=== PATIENT | female | born 1955 | race American Indian/Alaskan Native ===

== ENCOUNTER 2017-09-05 11:28 | Outpatient (CLI) | payer MEDICARE ==
--- NOTE | 2017-09-06 08:58 | Mammography Report ---
BILATERAL DIGITAL SCREENING MAMMOGRAM with CAD: 09/05/17 11:28:00 CLINICAL: Routine screening.Breast cancer survivor status post right mastectomy. The right breast is imaged because there is considerable soft tissue of the right chest wall. COMPARISON:07/30/16 FINDINGS: The breasts are almost entirely fatty.A few scattered benign left calcifications. No mass, architectural distortion or suspicious calcifications. IMPRESSION: No mammographic evidence of malignancy. BI-RADS CATEGORY: 2 -- Benign RECOMMENDATION: Routine mammographic screening in one year. COMMENT: Patient follow-up letters are generated by our [employer] application.
== END 2017-09-05 11:29 | disposition home or self-care (01) ==
LOC: SPVWC 11:28
PROVIDERS: ATTEND Internal Medicine
DX: Z12.31 Encounter for screening mammogram for malignant neoplasm of breast (principal); Z90.11 Acquired absence of right breast and nipple
CPT/HCPCS: 77067

== ENCOUNTER 2019-07-29 12:58 | Outpatient (CLI) | payer MEDICARE ==
--- NOTE | 2019-07-29 15:05 | Mammography Report ---
DIGITAL DIAGNOSTIC MAMMOGRAM WITH CAD, 07/29/2019 INDICATION: Breast cancer survivor status post right mastectomy. SCREENING MAMMOGRAM TECHNIQUE: Digital left mammographic imaging was performed. This examination was interpreted with the benefit of Computer-aided Detection analysis. COMPARISON: 09/05/2017 FINDINGS: Breast Density: The breast is almost entirely fatty. There is no evidence of dominant mass, suspicious calcifications or architectural distortion in the l eft breast. Scattered calcifications with benign morphology. IMPRESSION: No mammographic evidence of malignancy. Follow up recommendation: Routine yearly BI-RADS Category 2: Benign. A "normal" or negative report should not discourage follow up or biopsy of a clinically significant f inding. A written summary of these findings will be mailed to the patient. The patient will be entered into a mammography reporting system which will generate a reminder letter for the patient's next appointmen t at the appropriate interval. According to the [employer], yearly mammograms are recommended starting at age 40 and continuing as long as a woman is in good health. Breast MRI is recommended for women with an brian roximately 20-25% or greater lifetime risk of breast cancer, including women with a strong family his tory of breast or ovarian cancer and women who have been treated for Hodgkin's disease. Signer Name: Steven Graham MD Signed: 07/29/2019 3:00 PM Workstation Name: [id number]
--- NOTE | 2019-07-30 09:59 | Mammography Report ---
BONE DEXA CLINICAL: Postmenopausal. COMPARISON: 07/29/2015 TECHNIQUE: 2 site bone DEXA performed on an Hologic scanner. FINDINGS: The average BMD of the lumbar spine L1-L4 is 1.211g/cm squared with a T score of +0.6 and a Z score o f +2.6. This compares to 1.215g/cm squared on the last exam and represents a -0.3 % change from the p revious baseline. The average BMD of the left hip is 0.880 g/cm squared with a T score of -1.0and a Z score of 0. This compares to 0.947 g/cm squared on the last exam and represents a -7.0 % change from the previous base line. IMPRESSION: 1. WHO classification: Normal with average fracture risk based on spine measurements. 2. WHO classification Osteopenia with increased fracture risk based on left hip measurements. 3. A moderate decline in hip BMD but little change in spine BMD compared to the last exam. RECOMMENDATION: Clinical correlation and routine screening. Definitions: BMD equal bone mineral density T score = BMD related to peak bone mass of young adult ([place] expressed an standard deviation) Z score = age-matched BMD expressed in SD World health organization (WHO) diagnostic criteria Normal T score greater than equal to 1 standard deviation Osteopenia T score between -1 and -2.4 standard deviation Osteoporosis T score -2.5 standard deviation or below. Note: BMD is not the only risk factor for fracture; also consider factors such as the patient's age, risk of falling, previous osteoporotic fracture, family history of osteoporotic fractures, current sm oker and low body weight. Z scores are not calculated if greater than 80 years of age. Signer Name: Steven Graham MD Signed: 07/30/2019 9:54 AM Workstation Name: [id number]
== END 2019-07-29 12:59 | disposition home or self-care (01) ==
LOC: SPVWC 12:58
PROVIDERS: ATTEND Internal Medicine
DX: R92.8 Other abnormal and inconclusive findings on diagnostic imaging of breast (principal); Z78.0 Asymptomatic menopausal state
CPT/HCPCS: 77080

== ENCOUNTER 2020-09-12 09:40 | Outpatient (CLI) | payer MEDICARE ==
--- NOTE | 2020-09-12 12:08 | XRay Report ---
CHEST 2 VIEWS INDICATION / CLINICAL INFORMATION: COUGH R05. COMPARISON: None available. FINDINGS: SUPPORT DEVICES: None. HEART / MEDIASTINUM: No significant abnormality. LUNGS / PLEURA: No significant pulmonary or pleural abnormality. No pneumothorax. ADDITIONAL FINDINGS: No significant additional findings. IMPRESSION: 1. No acute findings. Signer Name: Grey Chambers MD Signed: 09/12/2020 12:04 PM Workstation Name: [id number]
--- NOTE | 2020-09-12 13:56 | XRay Report ---
LEFT HIP 2 VIEWS INDICATION: CONTUSION OF LEFT HIP S70.0. COMPARISON: None. IMPRESSION: Borderline to mild osteopenia is suspected. No acute osseous abnormality or bone lesion is appreciated. No significant degenerative changes. Large calcifications in the pelvis likely repre sent uterine fibroid disease. LEFT FEMUR 2 VIEWS INDICATION: Contusion of left thigh. COMPARISON: None. IMPRESSION: Borderline to mild osteopenia is suspected. No acute osseous or soft tissue abnormality. Signer Name: Bran Fu Jr, MD Signed: 09/12/2020 1:52 PM Workstation Name: [id number]
--- NOTE | 2020-09-12 14:38 | Mammography Report ---
DIGITAL SCREENING MAMMOGRAM WITH CAD, 09/12/2020 CLINICAL INFORMATION / INDICATION: Routine screening mammography. History of right breast cancer 2001 . TECHNIQUE: Digital bilateral 2D mammography was obtained in the craniocaudal and mediolateral obliqu e projections. This examination was interpreted with the benefit of Computer-Aided Detection analysis . COMPARISON: 07/29/2019, 09/05/2017 FINDINGS: Breast Density: The breasts are almost entirely fatty. No dominant mass, suspicious calcifications, or architectural distortion in either breast. Benign sca ttered calcifications, left breast. Partial mastectomy, right breast. Overall, no interval change. IMPRESSION: No mammographic evidence of malignancy. Follow up recommendation: Routine yearly BI-RADS Category 2: Benign. A "normal" or negative report should not discourage follow up or biopsy of a clinically significant f inding. A written summary of these findings will be mailed to the patient. The patient will be entered into a mammography reporting system which will generate a reminder letter for the patient's next appointmen t at the appropriate interval. The [employer] recommends yearly mammograms starting at age 40 and continuing as l misael as a woman is in good health. Breast MRI is recommended for women with an approximate 20-25% or greater lifetime risk of breast cancer, including women with a strong family history of breast or ova jose alejandro cancer or who have been treated for Hodgkin's disease. Signer Name: Rosa Isela Camara MD Signed: 09/12/2020 2:33 PM Workstation Name: [id number]
== END 2020-09-12 09:41 | disposition home or self-care (01) ==
LOC: SPVWC 09:40
PROVIDERS: ATTEND Internal Medicine
DX: Z12.31 Encounter for screening mammogram for malignant neoplasm of breast (principal); S70.02XA Contusion of left hip, initial encounter; R05 Cough; X58.XXXA Exposure to other specified factors, initial encounter; Y93.89 Activity, other specified; Y92.89 Other specified places as the place of occurrence of the external cause; Y99.8 Other external cause status
CPT/HCPCS: 71046; 77067

== ENCOUNTER 2022-01-04 13:48 | Outpatient (CLI) | payer MEDICARE ==
--- NOTE | 2022-01-05 18:22 | Mammography Report ---
DIGITAL SCREENING MAMMOGRAM WITH CAD, 01/04/2022 CLINICAL INFORMATION / INDICATION: Routine screening mammography. Z12.31 TECHNIQUE: Digital left 2D mammography was obtained in the craniocaudal and mediolateral oblique pro jections. This examination was interpreted with the benefit of Computer-Aided Detection analysis. COMPARISON: 09/12/2020, 07/29/2019 FINDINGS: Breast Density: The breasts are almost entirely fatty. No dominant mass, suspicious calcifications, or architectural distortion in the left breast. No interval change. IMPRESSION: No mammographic evidence of malignancy. Follow up recommendation: Routine yearly screening mammogram. - The ACR recommends yearly screening MRI in patients with a personal history of breast cancer who quintana ve dense fibroglandular tissue as well in patients who were diagnosed with breast cancer under the ag e of 50. BI-RADS Category 1: NEGATIVE A "normal" or negative report should not discourage follow up or biopsy of a clinically significant f inding. A written summary of these findings will be mailed to the patient. The patient will be entered into a mammography reporting system which will generate a reminder letter for the patient's next appointmen t at the appropriate interval. The [employer] recommends yearly mammograms starting at age 40 and continuing as l misael as a woman is in good health. Breast MRI is recommended for women with an approximate 20-25% or greater lifetime risk of breast cancer, including women with a strong family history of breast or ova jose alejandro cancer or who have been treated for Hodgkin's disease. Signer Name: Rosa Isela Camara MD Signed: 01/05/2022 6:18 PM Workstation Name: [email or web address]
== END 2022-01-04 13:49 | disposition home or self-care (01) ==
LOC: MAMMO 13:48
PROVIDERS: ATTEND Internal Medicine
DX: Z12.31 Encounter for screening mammogram for malignant neoplasm of breast (principal); C50.911 Malignant neoplasm of unspecified site of right female breast

== ENCOUNTER 2022-01-25 08:53 | Outpatient (CLI) | payer MEDICARE ==
--- NOTE | 2022-01-25 16:05 | Mammography Report ---
DIGITAL SCREENING MAMMOGRAM WITH CAD, 01/25/2022 CLINICAL INFORMATION / INDICATION: Routine screening mammography. SCREENING TECHNIQUE: Digital left 2D mammography was obtained in the craniocaudal and mediolateral oblique pro jections. This examination was interpreted with the benefit of Computer-Aided Detection analysis. COMPARISON: 01/04/2022 FINDINGS: Breast Density: There are scattered areas of fibroglandular density. No dominant mass, suspicious calcifications, or architectural distortion in the left breast. IMPRESSION: No mammographic evidence of malignancy. Follow up recommendation: Routine yearly screening mammogram. BI-RADS Category 1: NEGATIVE A "normal" or negative report should not discourage follow up or biopsy of a clinically significant f inding. A written summary of these findings will be mailed to the patient. The patient will be entered into a mammography reporting system which will generate a reminder letter for the patient's next appointmen t at the appropriate interval. The [employer] recommends yearly mammograms starting at age 40 and continuing as l misael as a woman is in good health. Breast MRI is recommended for women with an approximate 20-25% or greater lifetime risk of breast cancer, including women with a strong family history of breast or ova jose alejandro cancer or who have been treated for Hodgkin's disease. Signer Name: Osiel Jimenez MD Signed: 01/25/2022 4:00 PM Workstation Name: [id number]
== END 2022-01-25 08:54 | disposition home or self-care (01) ==
LOC: MAMMO 08:53
PROVIDERS: ATTEND Internal Medicine
DX: Z12.31 Encounter for screening mammogram for malignant neoplasm of breast (principal); C50.911 Malignant neoplasm of unspecified site of right female breast